=== PATIENT | female | born 1960 | race Caucasian/White ===

== ENCOUNTER → 2022-10-02 14:26 | Outpatient (CLI) | payer OTHER, SELFPAY ==
--- NOTE | 2022-10-02 14:30 | DI.RAD.S_ITS ---
PROCEDURE: XR CHEST 2V INDICATIONS: COUGH TECHNIQUE: 2 views of the chest were acquired. COMPARISON: None. FINDINGS: Surgical changes and devices: None. Lungs and pleura: Lungs are clear. No pleural effusions or pneumothorax. Mediastinum: Mediastinal contours are normal. Heart size is normal. Bones and chest wall: No suspicious bony abnormalities. Soft tissues appear unremarkable. IMPRESSION: No acute cardiopulmonary disease. Dictated by: Jenny Marquez M.D. on 10/02/2022 at 17:18 Approved by: Jenny Marquez M.D. on 10/02/2022 at 17:18
== END ==
PROVIDERS: PCP Obstetrics & Gynecology; Referring Provider Registered Nurse; Visit Provider Registered Nurse
DX: R05.9 Cough, unspecified (principal)
CPT/HCPCS: 0241U; 71046

== ENCOUNTER → 2022-10-02 16:43 | Outpatient (ROUT) | payer OTHER, SELFPAY ==
[2022-10-02 18:46] LABS: COVID-19 CEPHEID 4-PLEX PCR Negative (Negative); Influenza A - CEPHEID Flu A NEGATIVE (NEGATIVE); Influenza B - CEPHEID Flu B NEGATIVE (NEGATIVE); Respiratory Syncytial Virus Negative (Negative)
== END ==
PROVIDERS: PCP Obstetrics & Gynecology; Visit Provider Registered Nurse
DX: R05.9 Cough, unspecified (principal)
CPT/HCPCS: 0241U

== ENCOUNTER → 2023-12-04 12:11 | Outpatient (CLI) | payer OTHER, SELFPAY ==
--- NOTE | 2023-12-04 | DI.ECHO.S_ITS ---
[facility] +---------+ [facility] +---------+ : : [address] : [place] : : : : [id number] : : : : Phone: [phone]+ Echocardiogram Report + + :Name: JACY DIEGO Study Date: 12/04/2023 Height: 68 in : :[facility] ReadingLocation: Weight: 142 lb : : Gender: Female BSA: 1.8 m2 : :: 1960 Age: 63 yrs BP: 151/79 mmHg: :Reason For Study: ABNORMAL EKG : :Ordering Physician: BEULAH, : :JOE Performed By: Lawrence Aragon : :Referring: JOE RIOJAS : + + Interpretation Summary The left ventricle is normal in size and wall thickness. Left ventricular systolic function appears normal without focal wall motion abnormalities. The ejection fraction is estimated to be 60-65%. Diastolic parameters suggest probable normal left ventricular diastolic function and normal filling pressures. The right ventricle is normal in size and function. The left atrial size is normal. There is no significant valvular heart disease. The aortic root is normal size. Procedure: A two-dimensional transthoracic echocardiogram with color flow and Doppler was performed. The study quality was technically adequate. There is no prior echocardiogram noted for this patient. The patient was in normal sinus rhythm during the exam. The heart rate ranged between 75-86 bpm during the study. Left Ventricle: The left ventricle is normal in size and wall thickness. Left ventricular systolic function appears normal without focal wall motion abnormalities. The ejection fraction is estimated to be 60-65%. Diastolic parameters suggest probable normal left ventricular diastolic function and normal filling pressures. Right Ventricle: The right ventricle is normal in size and function. Atria: The left atrial size is normal. Right atrial size is normal. The interatrial septum grossly appears intact with no obvious evidence for an atrial septal defect. Mitral Valve: The mitral valve is normal in structure and function. There is no mitral valve stenosis. There is no mitral regurgitation noted. Aortic Valve: The aortic valve is trileaflet. There is no aortic valve stenosis. Tricuspid Valve: The tricuspid valve is normal in structure and function. There is no tricuspid stenosis. There is a trace or physiologic amount of tricuspid regurgitation. Pulmonic Valve: The pulmonic valve is not well visualized. There is no pulmonic valvular stenosis. There is no pulmonic valvular regurgitation. There is no significant valvular heart disease. Great Vessels: The aortic root is normal size. The dimensions of the ascending aorta are normal. The IVC is of normal diameter and collapses greater than 50% with a sniff. This suggests a low right atrial pressure of 3 mm Hg. Pericardium/ Pleura There is no pericardial effusion. There is no pleural effusion. MMode/2D Measurements & Calculations LVIDd: 4.8 cm LVOT diam: 2.3 cm LVIDs: 3.2 cm Ao root diam: 3.1 cm FS: 33.3 % asc Aorta Diam: 2.8 cm IVSd: 0.86 cm Ao Arch Diam (Prox Trans): 2.2 cm LVPWd: 0.82 cm LV linares. diameter/BSA (cm/m^2): 2.7 LV sys. diameter/BSA (cm/m^2): 1.8 LA A2 area: 18.4 cm2 RA long axis: 5.0 cm LA A4 area: 16.5 cm2 RA area: 16.0 cm2 LA length (vol): 5.0 cm RA vol: 43.7 ml LA vol: 51.4 ml RA : 24.7 ml/m2 LA vol index: 29.1 ml/m2 IVC diam: 1.6 cm RVD1 (basal): 3.0 cm RVD2 (mid): 2.7 cm TAPSE: 2.3 cm Doppler Measurements & Calculations Ao V2 max: 132.3 cm/sec LVOT Max Dominic: 104.3 cm/sec Ao V2 mean: 95.6 cm/sec LV V1 max P.4 mmHg Ao max P.0 mmHg LV V1 VTI: 21.0 cm Ao mean P.1 mmHg JACQUE(I,D): 2.9 cm2 Ao V2 VTI: 29.1 cm JACQUE(V,D): 3.2 cm2 sev ratio: 0.72 JACQUE indexed to BSA (cm^2/m^2): 1.7 MV E max dominic: 75.8 cm/sec PA V2 max: 153.0 cm/sec MV A max dominic: 70.8 cm/sec PA V2 mean: 111.5 cm/sec MV E/A: 1.1 PA mean P.5 mmHg Med Peak E' Dominic: 7.5 cm/sec PA pr(Accel): 25.9 mmHg E/E' med: 10.1 Lat Peak E' Dominic: 7.7 cm/sec E/E' lat: 9.9 E/e' average: 10.0 MV dec time: 0.21 sec SV(LVOT): 85.2 ml Reading Physician:01:[id number] PM
== END ==
PROVIDERS: PCP Registered Nurse; Referring Provider Registered Nurse; Visit Provider Registered Nurse
DX: R94.31 Abnormal electrocardiogram [ECG] [EKG] (principal)
CPT/HCPCS: 93306